=== PATIENT | female | born 1985 | race Caucasian/White ===

== ENCOUNTER → 2025-01-10 11:25 | Outpatient (REF) | payer BC, SELFPAY | LOC: HWRCS 11:25 | PROVIDERS: ATTENDING PHYSICIAN Internal Medicine Cardiovascular Disease; FAMILY PHYSICIAN Internal Medicine | DX: I34.1 Nonrheumatic mitral (valve) prolapse (principal); Z3A.11 11 weeks gestation of pregnancy | CPT/HCPCS: 93306 ==